=== PATIENT | male | born 1965 | race Caucasian/White ===

== ENCOUNTER 2025-01-05 11:27 | Outpatient (REF) | payer MEDICAID, SELFPAY ==
--- OUTSIDE RECORDS SUMMARY | 2025-01-05 13:56 | XMS_ITS | Continuity of Care Document ---
Author Name [facility] Organization 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 Unavailable Unavailable Problems Combined list of problems from Department of Defense and Veterans Affairs facilities. It does not include entries that were removed or entered in error. Problem Status Onset Date Problem Type Date of Resolution Comments Source Essential hypertension Active Condition February 06, 2017 Entered By: MIKEALA JURADO Comment: [facility] Raphael [facility] History of male erectile disorder Active Condition [facility] Hyperglycemia Active Condition [facility] Obesity Active Condition [facility] Osteoarthritis Active Condition February Entered By: MIKAELA JURADO Comment: Bilat wrists and knees [facility] Primary progressive multiple sclerosis Active Condition February 06 017 Entered By: MIKAELA JURADO Comment: Dr[facility] Aung Chow in [facility] privately [facility] Umbilical hernia Active Condition [facility] Medications Combined list of outpatient medications from Department of Defense and Veterans Affairs facilities.Medications provided include 1) outpatient medications from the last 15 months, and 2) patient-reported medications. Medication Details Route Status Patient Instructions Prescription Expires Prescription Number Last Dispense Date Ordering Provider Order Date Order Qty Source BACLOFEN 10MG TAB TAKE ONE TABLET BY MOUTH DAILY ORAL ACTIVE Elieser JURADO 2016 [facility] GABAPENTIN 300MG CAP TAKE 2 CAPSULES BY MOUTH THREE TIMES A DAY ORAL ACTIVE Elieser JURADO 2016 [facility] GLATIRAMER ACETATE 40MG/ML INJ,SYR,1ML INJECT 1 SYRINGE (40MG) SUBCUTAN EOUSLY THREE TIMES A WEEK SUBCUT ANEOUS ACTIVE Elieser JURADO 2016 [facility] HYDROCHLORO THIAZIDE 25MG TAB TAKE ONE TABLET BY MOUTH DAILY ORAL ACTIVE JURADOElieser RANDOLPH 2016 [facility] LISINOPRIL 20MG TAB TAKE ONE TABLET BY MOUTH DAILY ORAL ACTIVE JURADOElieser RANDOLPH 2016 [facility] MODAFINIL 200MG TAB TAKE ONE TABLET BY MOUTH DAILY ORAL ACTIVE JURADOElieser RANDOLPH 2016 [facility] Social History Combined list of available smoking, tobacco, and other social history from Department of Defense and Veterans Affairs facilities. Social History Type Response Date Comment [facility] e Tobacco smoking status SDIS QUIT TOBACCO USE > 7 YEARS AGO 02/06/2017 23 [facility]
--- OUTSIDE RECORDS SUMMARY | 2025-01-05 13:56 | XMS_ITS | Continuity of Care Document ---
Author Organization [facility] Address [address] [place] [address] Assessment No assessment recorded. Plan of Treatment Reminders Order Date Submit Date Provider Last Modified By Organization Details Last Modified Time Details Appointments FOLLOW UP 15 2024 10:45A M MARY BETH ZUNIGA Not available Not available Not available Lab hemoglobi n A1c, QN, blood 2024 025 [facility], [address] [place] [address], [id number], 01/05/2025 11:30:31 lipid panel, serum 2024 025 [facility], [address] [place] [address], [id number], 01/05/2025 11:30:31 CMP, serum or plasma 2024 025 [facility], [address] [place] [address], [id number], 01/05/2025 11:30:31 PSA, serum or plasma 2024 025 [facility], [address] [place] [address], [id number], 01/05/2025 11:30:31 Referral None recorded. Procedures None recorded. Surgeries None recorded. Imaging None recorded. Medication Orders tizanidin e 4 mg tablet 2024 025 [facility], [address] [place], [id number], 01/05/2025 11:23:40 Patient TargetsNo targets recorded. Patient InstructionsNo instructions recorded. Reason for Referral None Reported. Problems Name Problem SNOMED Code Status Onset Date Resolution Date Notes Provider Name and Address Organization Details Recorded Time Essential hypertensi on 27271404 Active 2017 Not Available [facility] 3 15:34:21 Multiple sclerosis 82831361 Active 2017 Not Available [facility] 3 15:34:21 Hypertrigl yceridemia 644403534 Active 2017 Not Available [facility] 3 15:34:20 Lumbago with sciatica 122705806 Active 2023 MARY BETH ZUNIGA [address] [place] [address], [phone], [facility] 4 14:02:17 Candidiasi s of skin 48844401 Active 2023 MARY BETH ZUNIGA [address] [place] [address], [phone], [facility] 4 14:23:21 Lumbago with sciatica 383776409 Active 2023 MARY BETH ZUNIGA [address] [place] [address], [phone], [facility] 4 14:23:57 Impaired fasting glycemia 721990479 Active 2024 MARY BETH ZUNIGA [address] [place] [address], [phone], [facility] 5 11:02:49 Notes:Some problems listed i n Document: #[id number] could not be added to this patient's chart. Please review this document and add these problems to the patient's chart manually as needed. Problem Notes None recorded. Procedures Surgical History Date Name Laterality Status Provider Name and Address Organization Details Recorded Time 10/25/19 18 colonoscopy completed Christina Haider NP, [address] [place] [address], [phone], [facility] 12/05/2018 15:03:15 Imaging Results None recorded. Procedure Notes None recorded. Medical Equipment None Reported. Allergies No known drug allergies Medications Name Sig Start Date Stop Date Status Note LastModified by Organization Details LastModified Time prednisone 10 mg tablet 50 mg x 2 days40 mg x 2 days30 mg x 2 days20 mg x 2 days10 mg x 2 days 01/05 completed Not Available Not Available Not Available gabapentin 600 mg tablet TAKE ONE TAB TID active Not Available Not Available No t Available doxycycline hyclate 100 mg capsule 07/18 completed Not Available Not Available Not Available tizanidine 4 mg tablet Take 1 tablet every 6 hours by oral route as needed for 30 days. 2024 active Not Available Not Available Not Avai lable lisinopril 20 mg tablet Take 1 tablet every day by oral route for 30 days. 07/21 completed Not Available Not Available Not Available sildenafil 100 mg tablet TAKE 1 TABLET DIRECTED NEEDED 04/27 completed Not Available Not Available Not Available meloxicam 7.5 mg tablet Take 1 tablet twice a day by oral route as needed for 30 days, for sciatic pain. active PRN Not Available Not Available No t Available prednisolon e acetate 1 % eye drops,suspe nsion 04/27 completed Not Available Not Available Not Available modafinil 200 mg tablet TAKE 1 TAB BY MOUTH EVERY DAY AND 1/2 TAB ON SATURDAY active Not Available Not Available No t Available baclofen 10 mg tablet TAKE ONE TABLET BY MOUTH TWICE A DAY NEEDED 01/05 completed Not Available Not Available Not Available gemfibrozil 600 mg tablet TAKE ONE TABLET BY MOUTH TWICE A DAY active Not Available Not Available No t Available erythromyci n 5 mg/gram (0.5 %) eye ointment APPLY 1 CM RIBBON INTO THE LOWER CONJUNCTI GONZÁLEZ SAC(S) IN THE AFFECTED EYE(S) BY OPHTHALMI C ROUTE 3 TIMES PER DAY 04/27 completed Not Available Not Available Not Available fluoxetine 20 mg tablet TAKE ONE TABLET BY MOUTH EVERY DAY 01/05 completed Not Available Not Available Not Available diclofenac sodium 75 mg tablet,malorie yed release TAKE ONE TABLET BY MOUTH TWICE A DAY WITH MEALS 04/27 completed Not Available Not Available Not Available hydrochloro thiazide 25 mg tablet Take 1 tablet every day by oral route for 30 days. 07/18 completed Not Available Not Available Not Available levofloxaci n 750 mg tablet TAKE ONE TABLET BY MOUTH EVERY DAY FOR 7 DAYS 04/27 completed Not Available Not Available Not Available methylpredn isolone 4 mg tablets in a dose pack use directed. 04/27 completed Not Available Not Available Not Available lisinopril 40 mg tablet TAKE ONE TABLET BY MOUTH EVERY DAY active Not Available Not Available No t Available fluoxetine 20 mg capsule TAKE ONE CAPSULE BY MOUTH EVERY DAY 04/27 completed Not Available Not Available Not Available [facility] 100,000 unit/gram topical powder APPLY TO THE AFFECTED AREA(S) BY TOPICAL ROUTE 2 TIMES PER DAY active Not Available Not Available No t Available dimethyl fumarate 240 mg capsule,del ayed release TAKE ONE CAPSULE BID active Not Available Not Available No t Available glatiramer 40 mg/mL subcutaneou s syringe 04/27 completed Not Available Not Available Not Available Vitals Date Recorded Body height Body mass index (BMI) Body weight Heart rate Oxygen saturation Oxygen saturation in Arterial blood by Pulse oximetry Systolic blood pressure Diastolic blood pressure Provider Name and Address Organization Details Last Updated DateTime 5 182.88 cm 38 kg/m2 299233. 86 g 80 /min 98 % 98 % 144 mm[Hg] 80 mm[Hg] Rosalba Cox [facility] 5 10:51:23 Social History Question Answer Notes LastModified by Organizat ion Details LastModified Time Tobacco Smoking Status Former Smoker Quit Donte veliz [facility] 04/27/2024 13:48:42 What Was The Date Of Your Most Recent Tobacco Screening? 04/27/2024 [email or web address] Information not available 04/27/2024 Sex: Unknown Functional Status None recorded. Mental Status None recorded. Family History Nothing Reported. Medical History No medical history recorded. Immunizations Vaccine Type Date Status Note Provider Nam e and Address Organization Details Recorded Time zoster recombinant 2 completed Not Available [facility] 10/15/2022 15:34:21 Past Encounters Encounter ID Performer Location Encounter Start Date Encounter Closed Date Diagnosis/Indication Diagnosis SNOMED-CT Code Diagnosis ICD10 Code Diagnosis Note [id number] MARY BETH ZUNIGA [facility] [address] [facility] [address] 01/05/2025 10:47:11 01/05/2025 13:30:14 Essential hypertension 85543710 I10 BP stable Hypertriglyceridemia 302 134441 E78.1 needs recheck Lumbago with sciatica 20 0019526 M54.41 stable Multiple sclerosis 94342 007 G35 stable, no sig changeshad to reschedule his neuro appt Impaired f asting glycemia 963909029 R73.01 Screening for malignant neoplasm of prostate 295918396 Z12.5 recheck PSA levels Health Concerns Section Related Observation LastModified by Organization Detai ls LastModified Time None Recorded Concern Status LastModified by Organization Details LastModified Time None Recorded Payers Encounter Date Sequence Insurance Name Policy Number Policy Wilson Covered Member ID Wilson Member ID Guarantor Name 01/05/2025 1 [place] [facility] Juan Duy [id number] Juan Gordillo Notes Date Note Type Note Provider Name a nd Address Organization Details Recorded Time 01/05/2025 text/html medication check f/u the patient had to cancel his neurology appointment due to a sick granddaughter, 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
--- OUTSIDE RECORDS SUMMARY | 2025-01-05 13:56 | XMS_ITS | Data Portability ---
Author Organization [facility], [facility] Address [address] [place] [address] Assessment No assessment recorded. Plan of Treatment Reminders Order Date Submit Date Provider Last Modified By Organization Details Last Modified Time Details Appointments None record ed. Lab None record ed. Referral None record ed. Procedures None record ed. Surgeries None record ed. Imaging None record ed. Medication Orders None record ed. Patient TargetsNo targets recorded. Patient InstructionsNo instructions recorded. Reason for Referral None Reported. Results Created Date Observation Date Name Description Value Unit Range Abnormal Flag Note LastModifiedBy Organization Detail LastModifiedTime Result Notes None recorded. Procedures Surgical History Date Name Laterality Status Provider Name and Address Organization Details Recorded Time 8 Ty - Colonoscopy completed Henrry Crawford MD [address] [place] [address], [phone], [facility] 10/25/2017 08:09:48 4 Ty - Colonoscopy completed Henrry Crawford MD [address] [place] [address], [phone], [facility] 08/13/2014 08:38:36 Imaging Results None recorded. Procedure Notes None recorded. Medical Equipment None Reported. Vitals None Recorded Social History None recorded. Functional Status None recorded. Mental Status None recorded. Family History Nothing Reported. Medical History No medical history recorded. Past Encounters Encounter ID Performer Location Encounter Start Date Encounter Closed Date Diagnosis/Indication Diagnosis SNOMED-CT Code Diagnosis ICD10 Code Diagnosis Note [id number] [address] [address] 08/13/2014 06:56:36 08/13/2014 14:27:05 [id number] Henrry Crawford MD [address] [address] 10/25/2017 06:44:36 10/25/2017 15:02:20 Health Concerns Section Related Observation LastModified by Organization Detai ls LastModified Time None Recorded Concern Status LastModified by Organization Details LastModified Time None Recorded Advance Directives Directive None Recorded Payers Encounter Date Sequence Insurance Name Policy Number Policy Wilson Covered Member ID Wilson Member ID Guarantor Name 08/13/2014 2 [employer] Juan Gordillo [id number] Juan Gordillo 08/13/2014 1 [facility] [employer] [facility] [id number] Juan Gordillo [id number] Juan Gordillo 10/25/2017 2 [employer] [place]) Juan Gordillo [id number] Juan Gordillo 10/25/2017 1 [facility] [employer] ([facility] [id number] Juan Gordillo [id number] Juan Gordillo
--- OUTSIDE RECORDS SUMMARY | 2025-01-05 13:56 | XMS_ITS | Data Portability ---
Author Organization [facility] Home Service Address [address] [place] [address] Assessment Encounter Date Assessment Date Assessment LastModified by Organization Details LastModified Time 03/07/2020 03/07/2020 TELEMED VIDEO CALL: 11 minutes PATIENT VERBALLY CONSENTED [email or web address] Not available 03/07/2020 10:43:42 04/03/2021 04/03/2021 Patient agreed and verbally consents to this audio and video Telehealth appt via a secure platform [email or web address] Not available 04/03/2021 16:16:18 08/08/2021 08/08/2021 Patient agreed and verbally consents to this audio and video Telehealth appt via a secure platform [email or web address] Not available 08/08/2021 15:08:24 Plan of Treatment Reminders Order Date Submit Date Provider Last Modified By Organization Details Last Modified Time Details Appointments FOLLOW UP 15 2024 10:45A M MARY BETH ZUNIGA Not available Not available Not available Lab hemoglobi n A1c, QN, blood 2024 025 [facility], [address] [place] [address], [id number], 01/05/2025 11:30:31 lipid panel, serum 2024 025 [facility], [address] [place] [address], [id number], 01/05/2025 11:30:31 CMP, serum or plasma 2024 025 [facility], [address] [place] [address], [id number], 01/05/2025 11:30:31 PSA, serum or plasma 2024 [facility], [address] [place] [address], [id number], 01/05/2025 11:30:31 lipid panel, blood - 8-12 hr fast 2023 024 [facility], [address] [place] [address], [address], 05/05/2024 08:15:29 CBC w/ auto diff 2023 [facility], [address] [place] [address], [id number], 04/27/2024 14:12:47 PSA, serum or plasma 2023 024 [facility], [address] [place] [address], [address], 04/27/2024 14:12:48 CMP, serum or plasma 2023 [facility], [address] [place] [address], [address], 05/05/2024 08:15:29 hemoglobi n A1c, QN, blood 2023 [facility], [address] [place] [address], [address], 04/27/2024 14:12:48 Referral None recorded. Procedures None recorded. Surgeries None recorded. Imaging None recorded. Medication Orders tizanidin e 4 mg tablet 2024 [facility], [address] [place], [address], 01/05/2025 11:23:40 gemfibroz il 600 mg tablet 2023 024 [facility], [address] [place], [address], 04/27/2024 14:04:21 meloxicam 7.5 mg tablet 2023 024 [facility], [address] [place], [address], 01/05/2025 11:06:18 erythromy tulio 5 mg/gram (0.5 %) eye ointment [address] [facility], [address] [place], [address], 04/27/2024 13:47:43 levofloxa tulio 750 mg tablet [address] [facility], [address] [place], [address], 04/27/2024 13:48:03 Medrol (Karl) 4 mg tablets in a dose pack [address] [facility], [address] [place], [address], 04/27/2024 13:48:12 diclofena c sodium 75 mg tablet,de layed release 2020 [facility], [address] [place], [address], 04/27/2024 14:01:48 baclofen 10 mg tablet 2019 020 [facility], [address] [place], [address], 01/05/2025 11:06:57 Patient TargetsNo targets recorded. Patient InstructionsNo instructions recorded. Reason for Referral None Reported. Results Created Date Observation Date Name Description Value Unit Range Abnormal Flag Note LastModifiedBy Organization Detail LastModifiedTime Result Notes None recorded. Problems Name Problem SNOMED Code Status Onset Date Resolution Date Notes Provider Name and Address Organization Details Recorded Time Essential hypertensi on 87889741 Active 2017 Not Available [facility] 3 15:34:21 Multiple sclerosis 62683665 Active 2017 Not Available [facility] 3 15:34:21 Hypertrigl yceridemia 502443475 Active 2017 Not Available [facility] 3 15:34:20 Lumbago with sciatica 425761418 Active 2023 MARY BETH ZUNIGA [address] [place] [address], [phone], [facility] 4 14:02:17 Candidiasi s of skin 91976116 Active 2023 MARY BETH ZUNIGA [address] [place] [address], [phone], [facility] 4 14:23:21 Lumbago with sciatica 130777738 Active 2023 MARY BETH ZUNIGA [address] [place] [address], [address], [facility] 4 14:23:57 Impaired fasting glycemia 598767768 Active 2024 MARY BETH ZUNIGA [address] [place] [address], [address], [facility] 5 11:02:49 Notes:Some problems listed i n Document: #[id number] could not be added to this patient's chart. Please review this document and add these problems to the patient's chart manually as needed. Problem Notes None recorded. Procedures Surgical History Date Name Laterality Status Provider Name and Address Organization Details Recorded Time 10/25/19 18 colonoscopy completed Christina Haider NP, S [address] [place] [address], [phone], [facility] 12/05/2018 15:03:15 Imaging Results None [...] BY MOUTH EVERY DAY FOR 7 DAYS 07/22 /2024 completed Not Available Not Available Not Available [...] completed Not Available Not Available Not Available [facility] 100,000 unit/gram topical powder APPLY TO THE [...] and Address Organization Details Last Updated DateTime 4 182.88 cm 38 kg/m2 958143. 86 g 80 /min 98 % 98 % 128 mm[Hg] 84 mm[Hg] Donte Mosley MA [facility] 4 13:49:57 Date Recorded Body height Body mass index (BMI) Body weight Heart rate Oxygen saturation Oxygen saturation in Arterial blood by Pulse oximetry Systolic blood pressure Diastolic blood pressure Provider Name and Address Organization Details Last Updated DateTime 5 182.88 cm 38 kg/m2 318689. 86 g 80 /min 98 % 98 % 144 mm[Hg] 80 mm[Hg] Rosalba Cox [facility] 5 10:51:23 Social History Question Answer Notes LastModified by Organizat ion Details LastModified Time Tobacco Smoking Status Former Smoker Quit Donte veliz [facility] 04/27/2024 13:48:42 What Was The [...] SNOMED-CT Code Diagnosis ICD10 Code Diagnosis Note [id number] Christina Haider NP, S [facility] [address] [facility],[place] [address] 07/18/2018 09:48:27 07/18/2018 14:41:52 Impaired glucose tolerance 3144663 R73.03 Multiple sclerosis 007 G35 on meds, up to date with Dr. Galeano Essential hypertension 00079496 I10 D/C HCTZ, increase lisinopril [id number] Christina Haider NP, S [facility] [address] [facility],[place] [address] 08/01/2018 09:29:35 08/01/2018 11:49:16 Hypertriglyceridemia 349456236 E78.1 new lopid- will recheck in October with f/u appt Impaired g lucose tolerance 5624027 R73.03 A1C 5.0- long discussion pre-diabet ic Multiple sclerosis 07403 007 G35 up to date with Dr. Galeano-w ill refill baclofen, to taper off gabapentin Essential hypertension 06260635 I10 improved [id number] Christina Haider NP, S [facility] [address] [facility], [place] [address] 12/05/2018 14:56:19 12/05/2018 15:37:15 Hypertriglyceridemia 306567190 E78.1 improved on lopid triglyceri navarro from 397 to 75 Impaired g lucose tolerance 1939070 R73.03 continued improved diet Essential hypertension 95707448 I10 stable Multiple sclerosis 12032 007 G35 up to date with Dr. Galeano- Right flank pain 4084080 09 R10.9 Anxiety 10462958 F41.9 [id number] MARY BETH ZUNIGA [facility] [address] [facility], [place] [address] 03/07/2020 08:10:18 03/07/2020 11:26:10 Multiple sclerosis 10833578 G35 doing well in terms of his disease, has his good and bad days staying healthy and strong staying positive about his diagnosis and is overall doing very well 29438 MARY BETH ZUNIGA [facility] [address] [facility] [address],[place] [address] 04/03/2021 08:08:52 04/03/2021 16:26:43 Multiple sclerosis 31230168 G35 doing well in terms of his disease, has his good and bad days staying healthy and strong staying positive about his diagnosis and is overall doing very well neurology appt last week was good, the patient wasn't changed, his disease has been stable Osteoarthr itis of knee 566243442 M17.0 uses a cane for aid while walking Sciatica 29196072 M54.32 will trial diclofenac already on high dose of gabapentin 76101 MARY BETH ZUNIGA [facility] [address] [facility] [address],[place] [address] 08/08/2021 09:48:28 08/08/2021 15:46:14 Bacterial conjunctivitis 379335467 H10.011 will treat for bacterial conjuctivi tis Acute bronchitis 8759363 2 J20.9 probable bronchitis vs pnalong history of URI and bronchitis [id number] MARY BETH ZUNIGA [facility] [address] [facility] [address], [place] [address] 04/27/2024 13:42:38 04/27/2024 14:32:43 Depression screening 848057924 Z13.31 negative Hypertriglyceridemia 302 806245 E78.1 will set up with refill of his medication Essential hypertension 58534757 I10 stable with recheck Impaired g lucose tolerance 0220956 R73.03 stable Multiple sclerosis 49323 007 G35 doing well in terms of his disease, has his good and bad days staying healthy and strong staying positive about his diagnosis and is overall doing very well follows closely with his neurologis t, medication corrected in chart Lumbago with sciatica 20 5849857 M54.41 will set up with meloxicam BID to see if it helps with the OA and MS Screening for malignant neoplasm of prostate 455675803 Z12.5 due for screening Screening colonoscopy 44 8945305 Z12.11 every ten years, up to date, had one 5 years ago At [facility], [facility]–1983 risk for falls 942389865 Z91.81 uses cane 603446 MARY BETH ZUNIGA [facility] [address] [facility] [address],[place] [address] 01/05/2025 10:47:11 01/05/2025 13:30:14 Essential hypertension 97861015 I10 BP stable Hypertriglyceridemia 302 063230 E78.1 needs recheck Lumbago with sciatica 20 9062202 M54.41 stable Multiple sclerosis 01627 007 G35 stable, no sig changeshad to reschedule his neuro appt Impaired f asting glycemia 677029448 R73.01 Screening for malignant neoplasm of prostate 358028614 Z12.5 recheck PSA levels Health Concerns Section Related Observation LastModified by Organization Detai ls LastModified Time None Recorded Concern Status LastModified by Organization Details LastModified Time None Recorded Advance Directives Directive None Recorded Payers Encounter Date Sequence Insurance Name Policy Number Policy Wilson Covered Member ID Wilson Member ID Guarantor Name 03/07/2020 1 [facility] [id number] Juan Gordillo [id number] Juan Gordillo 04/03/2021 1 [facility] [id number] Rubi Gordillo [id number] Juan Gordillo 08/08/2021 1 [facility] [id number] Rubi Gordillo [id number] Juan Gordillo 04/27/2024 1 [place] [facility] Juan Gordillo [id number] Juan Gordillo 01/05/2025 1 [place] [facility] Juan Gordillo [id number] Juan Gordillo Notes Date Note Type Note Provider Name a ri Address Organization Details Recorded Time 03/07/2020 text/html TELEMED VIDEO CALL: 11 minutes PATIENT VERBALLY CONSENTED medication f/u baclofen > 10 mg BID PRN, takes it it for MS, takes it for when he is having muscle spasms caused by the MS, helps him with the pain and issues with that no side effects, good on the dosage gemfibrozil > takes it for cholesterol, may not have wanted to have started him on a statin due to possibility of muscle side effects in terms of his MS he states that it is day to day with his symptoms > states that somes days he is really good, some days he has bad days can keep him up at night in terms of the muscle pain and spasms, fatigue MARY BETH ZUNIGA [address] [place], [address], [facility] 03/07/2020 10:44:29 04/03/2021 text/html paperwork MS: the patient reports it is similar to last appt, peaks and plateaus recent neurologist appt, the patient states everything is stable osteoarthritis: the is using a cane for stability otherwise doing well sciatica: the patient will be started on diclofenac for pain and call if no improvement MARY BETH ZUNIGA [address] [place], [address], [facility] 04/03/2021 16:20:58 08/08/2021 text/html c/o pink eye and chest congestion telemed the patient reports chest congestion and tightness with productive coughthe patient reports he is producing bermudez mucus the patient reports redness of his right eye with eye crust with purulent dischargethe patient has tried OTC decongestants and cough medication without effect will give abx with medrol dose karl and anbx ointment for the eye no sick contacts MARY BETH ZUNIGA [address] [place], [address], [facility] 08/08/2021 15:09:51 04/27/2024 text/html f/u medication depression screening: The patient denies little pleasure in activities they find enjoyable, feeling depressed, difficulties sleeping, feeling tired or having little energy, change in appetite, feeling guilty, overwhelmed or unmotivated. The patient denies suicidal ideation, thoughts of hurting themselves or others. Their mood is appropriate, they show good judgement and clear understanding of the conversation. They are orientated to time, place and person. They are not expressing any concerning thoughts or actions that would need further investigation and treatment for mental health. HLD: stable, needs refill of medication currently the adoptive parental figure for his granddaughter who is 11 y/o (his daughter , leaving him in custody) the patient reports he may be having carpal tunnel surgery again (will talk to surgeon) has really bad sciatic pain, mainly R sidealso on-top of the MS patient currently has and the OA needs lab work for the year MARY BETH ZUNIGA [address] [place], [address], [facility] 04/27/2024 14:17:02 01/05/2025 text/html medication check f/u the patient had to cancel his neurology appointment due to a sick granddaughter, 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
[2025-01-05 14:07] LABS: Alanine Aminotransferase 25 U/L (0-40); Albumin Level 4.6 g/dL (3.5-5.0); Alkaline Phosphatase 72 U/L (39-117); Anion Gap 12 (12-20); Aspartate Amino Transferase 19 U/L (5-37); Bilirubin Total 1.1 mg/dL (0.0-1.0); Blood Urea Nitrogen 11 mg/dL (9-16); Calcium 10.2 mg/dL (8.4-10.2); Carbon Dioxide 25 mmol/L (22-29); Chloride 103 mmol/L (96-108); Cholesterol 171 mg/dL (<200); Estimated Glomerular Filt Rate > 60; Glucose Random 244 mg/dL (60-115); HDL Cholesterol 45 mg/dL (>40); LDL Cholesterol Calculated 95 mg/dL (<100); Potassium 3.8 mmol/L (3.3-5.1); Sodium 136 mmol/L (135-145); Total Protein 7.8 g/dL (6.5-8.0); Triglycerides 157 mg/dL (<150)
[2025-01-05 14:17] LABS: Prostate Specific Antigen 2.97 ng/mL (<0.05-4.0)
[2025-01-05 17:10] LABS: Estimated Average Glucose 209 mg/dL; Hemoglobin A1C 291.5869 umol/L; Hemoglobin A1c % 8.9 % (<6.0); Total Hemoglobin (HGBA1C) 3963.6655 umol/L
== END 2025-01-05 11:28 | disposition home or self-care (01) ==
LOC: HO.MANLDS 11:27
PROVIDERS: Visit Provider Physician Assistant
DX: E78.1 Pure hyperglyceridemia (principal); R73.01 Impaired fasting glucose
CPT/HCPCS: 36415; 80053; 80061; 83036; 84153

== ENCOUNTER 2025-09-10 13:46 | Outpatient (REF) | payer MEDICAID, SELFPAY ==
--- OUTSIDE RECORDS SUMMARY | 2025-09-10 18:02 | XMS_ITS | Clinical Summary ---
Author Organization [facility] Address [address] [facility] [address] [place] [address] Phone Care Team Providers Care Pharmacy Helper Name Role Phone Ricky Raphael Primary Care Provider [phone] Allergies No known active allergies Medications Medication-Free Text Gabapentin Active MODAFINIL ORAL Activ e LISINOPRIL ORAL Acti ve GLATIRAMER ACETATE (COPAXONE SUBQ) Acti ve Social History Tobacco Use Types Packs/Day Years Used Date Smoking Tobacco: Former Smokeless Tobacco: Never Alcohol Use Standard Drinks/Week Comments Yes 0 (1 standard drink = 0.6 oz pur e alcohol) Education Answer Date Recorded Are you interested in more education? Not on kash e 02/17/2023 Are you concerned about learning? Not on file 02/17/2023 No 02/17/2023 No 02/17/2023 Digital Access Answer Date Recorded No 03/03/2023 No 03/03/2023 Reliable internet access at home? Not on file 03/03/2023 Device with a working camera? Not on file Intimate Partner Violence Answer Date R ecorded Are you denied basic needs s uch as food, clothing, or medical care? No 10/07/2024 In the past 12 months have y ou been in a relationship with a person who hurts, threatens, or tries to control you? No 10/07/2024 Are you denied basic needs s uch as food, clothing, or medical care? No 10/07/2024 In the past 12 months have y ou been in a relationship with a person who hurts, threatens, or tries to control you? No 10/07/2024 Sex and Gender Information Value Date Recorded Sex Assigned at Male 11/20/2018 3:39 PM EST Legal Sex Male 6:01 PM EST Gender Identity Male 11/20/2018 3:39 PM EST Sexual Orientation Straight 11/20/2018 3: 39 PM EST Last Filed Vital Signs Vital Sign Reading Time Taken Comments Blood Pressure 135/91 10/07/2024 4:45 PM EST Pulse 88 10/07/2024 4:45 PM EST Temperature 36.6 C (97.8 F) 10/07/2024 4:45 PM EST Respiratory Rate 16 10/07/2024 4:45 PM EST Oxygen Saturation 100% 10/07/2024 4:45 PM EST Inhaled Oxygen Concentration - - Weight 124.7 kg (275 lb) 10/07/2024 1:24 PM EST Height 182.9 cm (6') 10/07/2024 1:24 PM EST Body Mass Index 37.3 10/07/2024 1:24 PM EST Plan of Treatment Health Maintenance Due Date Last Done Comments Adult Td,Tdap Booster 1963 LIPID PANEL 1963 DEPRESSION SCREENING 1975 SMOKING Hx and SMOKELESS TOBACCO SCREENING 1976 HIV ONE-TIME SCREENING (18-6 5 YEARS) 1981 SCREENING FOR DIABETES 1998 COLOGUARD 2008 COLONOSCOPY 2008 COLORECTAL CANCER SCREENING 2008 FIT TEST 2008 FOBT 2008 SIGMOIDOSCOPY 2008 VIRTUAL COLONOSCOPY 2008 PNEUMOCOCCAL VACCINES (50+ years) (1 of 1 - PCV) 2013 CREATININE LEVEL 11/20/2019 11/20/2018, 07/15/2018 POTASSIUM LEVEL 11/20/2019 11/20/2018 INFLUENZA VACCINE (#1) 2025 COVID-19 VACCINE ( - 2024-2 6 season) 2025 RSV VACCINE (1 - 1-dose 75+ series) 2038 ZOSTER VACCINES Completed 06/15/2022, 12/22/2021 HEPATITIS C SCREENING Completed 08/06/2023 , 08/06/2023 HEPATITIS A VACCINES Aged Out No long er eligible based on patient's age to complete this topic HIB VACCINES Aged Out No longer eligi ble based on patient's age to complete this topic MENINGOCOCCAL VACCINES (ACWY) Aged Out No longer eligible based on patient's age to complete this topic MENINGOCOCCAL VACCINES (B) Aged Out N o longer eligible based on patient's age to complete this topic Medical Devices Not on file Procedures Procedure Name Priority Date/Time Associated Diagnosis Comments HEPATITIS C ANTIBODY, QUALITATIVE Routine 08/06/2023 8:47 AM EDT Numbness Memory loss BASIC METABOLIC PANEL (BMP) STAT 11/20/2018 3:54 PM EST from Last 3 Months or Most Recently Relevant to Health Maintenance Results * Hepatitis C antibody, qualitative (08/06/2023 8:47 AM EDT) HCV NON-REACTIV E NON-REACTI VE [facility] Blood 08/06/2023 8:47 AM EDT 08/06/2023 8:50 AM EDT us Aung Coe MD LAB BLOOD BKR ORDERABLES Fin al Result [address] [address] * (ABNORMAL) Basic metabolic panel (11/20/2018 3:54 PM EST) SODIUM 125(L) 133 - 146 mmol/L [facility] CHLORIDE 92(L) 96 - 108 mmol/L [facility] POTASSIUM 4.4 3.3 - 5.1 mmol/L [facility] CO2 24 21 - 35 mmol/L [facility] BUN 15 6 - 19 mg/dL [facility] CREATININE 0.90 0.5 - 1.5 mg/dL [facility] GLUCOSE 136(H) 70 - 99 mg/dL [facility] CALCIUM 9.0 8.4 - 10.3 mg/dL [facility] EGFR 96 >59 mL/min/1.7 3m2 [facility] Comment:If patient is black, multiply result by 1.159. Estimated glomerular filtration rate calculated using the CKD-EPI equation. ANION GAP 13 10 - 20 mmol/L [facility] Blood 11/20/2018 3:54 PM EST 11/20/2018 4:02 PM EST Arleth [facility] LAB BLOOD BKR ORDERABLES Final Result [facility] [address] [place] [address] from Last 3 Months or Most Recently Relevant to Health Maintenance Insurance [employer] MEDICARE [facility] MEDICARE A [facility] MEDIC[facility] A Care Teams Pharmacy Helper Relationship Specialty Start Date End Date Ricky Raphael DO [email or web address] PCP - General 10/10/17 Additional Source Comments The information contained in this document represents components of the legal health record. It is not the complete legal health record.[facility]
--- OUTSIDE RECORDS SUMMARY | 2025-09-10 18:02 | XMS_ITS | Encounter Summary ---
Author Organization [facility] Address [address] [facility] [address] [place] [address] Phone Care Team Providers Care Instructional Design Consultant Name Role Phone Ricky Raphael DO Primary Care Provider [phone] Encounter Details Date Type Department Care Team (Latest Contact Info) Description 07/15/2018 Transcribe Orders [address] [address] Aung Coe MD [address] [place] [address], [address] [place] [address] [email or web address] Pre-procedure lab exam (Primary Dx) Social History Tobacco Use Types Packs/Day Years Used Date Smoking Tobacco: Never Assessed Sex and Gender Information Value Date Recorded Sex Assigned at Male 11/20/2018 3:39 PM EST Legal Sex Male 6:01 PM EST Gender Identity Male 11/20/2018 3:39 PM EST Sexual Orientation Straight 11/20/2018 3: 39 PM EST documented as of this encounter Plan of Treatment Not on file documented as of this encounter Results * Creatinine/eGFR (07/15/2018 9:35 AM EDT) CREATININE 0.90 0.5 - 1.5 mg/dL [facility] EGFR 96 >59 mL/min/1.7 3m2 [facility] Comment:If patient is black, multiply result by 1.159. Estimated glomerular filtration rate calculated using the CKD-EPI equation. Blood 07/15/2018 9:35 AM EDT 07/15/2018 9:40 AM EDT us Aung Coe MD LAB BLOOD BKR ORDERABLES Fin al Result Performing Organization Address City/[facility]/ZIP Co de Phone Number [address] [address] * BUN (07/15/2018 9:35 AM EDT) BUN 18 6 - 19 mg/dL [facility] Blood 07/15/2018 9:35 AM EDT 07/15/2018 9:40 AM EDT us Aung Coe MD LAB BLOOD BKR ORDERABLES Fin al Result Performing Organization Address [facility] de Phone Number [address] [address] documented in this encounter Visit Diagnoses Diagnosis Pre-procedure lab exam- Primary Pre-procedural laboratory examination documented in this encounter Additional Health Concerns Infection Onset Date Last Indicated Resolved Time MRSA Comment:Import to add expiration date of 12/23/2021 per Infection Control as part of historical infection status reconciliation 09/01/2009 09/01/2009 12/24/19 22 1:28 AM EDT documented as of this encounter Care Teams Instructional Design Consultant Relationship Specialty Start Date End Date Ricky Raphael DO [email or web address] PCP - General 10/10/17 documented as of this encounter Additional Source Comments The information contained in this document represents components of the legal health record. It is not the complete legal health record.[facility]
--- OUTSIDE RECORDS SUMMARY | 2025-09-10 18:02 | XMS_ITS | Data Portability ---
Author Organization [facility], Telehealth Patient Home Address [address] [place] [address] Assessment Encounter Date Assessment Date Assessment LastModified by Organization Details LastModified Time 04/03/2021 04/03/2021 Patient agreed and verbally consents to this audio and video Telehealth appt via a secure platform [email or web address] Not available 04/03/2021 16:16:18 08/08/2021 08/08/2021 Patient agreed and verbally consents to this audio and video Telehealth appt via a secure platform [email or web address] Not available 08/08/2021 15:08:24 08/31/2025 08/31/2025 [id number] [place] [id number] (FITNESS DIRECTOR) MDM MODERATE MUST MEET 2 OUT OF 3 ELEMENTS: PROBLEMS, DATA OR RISK ELEMENT 1: PROBLEMS ADDRESSED 1 OR MORE CHRONIC ILLNESS WITH EXACERBATION OR 2 OR MORE STABLE CHRONIC ILLNESSES OR 1 UNDIAGNOSED NEW PROBLEM OR 1 ACUTE ILLNESS W/SYMPTOMS OR 1 ACUTE COMPLICATED INJURY ELEMENT 2: DATA MUST MEET 1 OF 3 CATEGORIES CATEGORY 1: REVIEW OF PRIOR EXTERNAL NOTES, REVIEW OF RESULTS, ORDERING OF EACH TEST, ASSESSMENT REQUIRING INDEPENDENT HISTORIAN OR CATEGORY 2: INDEPENDENT INTERPRETATION OF TESTS BY ANOTHER PHYSICIAN OR SPECIALIST OR CATEGORY 3: DISCUSSION OF MGT OR TEST INTERPRETATION W/EXTERNAL PHYSICIAN OR SPECIALIST ELEMENT 3: RISK RISK OF COMPLICATIONS AND/OR MORBIDITY OR MORTALITY OF PATIENT MANAGEMENT PROVIDER MUST THOROUGHLY DOCUMENT EACH ELEMENT THAT IS COVERED [email or web address] Not available 08/31/2025 17:12:36 Plan of Treatment Reminders Order Date Submit Date Provider Last Modified By Organization Details Last Modified Time Details Appointments FOLLOW UP 15 2025 09:30A MARY BETH FARRELL Not available Not available Not available Lab hemoglobi n A1c, QN, blood [id number] [facility], [address] [place] [address], [address], 08/31/2025 17:20:37 CMP, serum or plasma 2024 [facility], [address] [place] [address], [address], 08/31/2025 17:20:37 microalbu min/creat inine, mass ratio, urine 2024 formerly [facility], [address] [facility], [address], [place], [address], 09/01/2025 08:23:15 glucose, fasting, QN, serum or plasma 2024 [facility], [address] [place] [address], [address], 08/31/2025 17:25:19 HbA1c (hemoglob in A1c), blood 2024 [facility], [address] [place] [address], [address], 08/31/2025 17:25:19 CBC w/ auto diff 2024 [facility], [address] [place] [address], [address], 08/31/2025 17:20:37 hemoglobi n A1c, QN, blood 2024 025 [facility], [address] [place] [address], [address], 01/05/2025 11:30:31 lipid panel, serum 2024 025 [facility], [address] [place] [address], [address], 01/06/2025 12:58:11 CMP, serum or plasma 2024 025 [facility], [address] [place] [address], [address], 01/06/2025 12:58:10 PSA, serum or plasma 2024 025 [facility], [address] [place] [address], [address], 01/05/2025 11:30:31 lipid panel, blood - 8-12 hr fast 2023 024 [facility], [address] [place] [address], [address], 05/05/2024 08:15:29 CBC w/ auto diff 2023 024 [facility], [address] [place] [address], [address], 04/27/2024 14:12:47 PSA, serum or plasma 2023 024 [facility], [address] [place] [address], [address], 04/27/2024 14:12:48 CMP, serum or plasma 2023 024 [facility], [address] [place] [address], [address], 05/05/2024 08:15:29 hemoglobi n A1c, QN, blood 2023 024 [facility], [address] [place] [address], [address], 04/27/2024 14:12:48 Referral None recorded. Procedures None recorded. Surgeries None recorded. Imaging None recorded. Medication Orders sildenafi l 50 mg tablet 2024 025 [facility], [address] [place], [address], 08/31/2025 17:21:18 tizanidin e 4 mg tablet 2024 025 [facility], [address] [place], [address], 01/05/2025 11:23:40 gemfibroz il 600 mg tablet 2023 024 [facility], [address] [place] [address], [id number], 04/27/2024 14:04:21 meloxicam 7.5 mg tablet 2023 [facility], [address] [place] [address], [address], 01/05/2025 11:06:18 erythromy tulio 5 mg/gram (0.5 %) eye ointment [address] [facility], [address] [place] [address], [address], 04/27/2024 13:47:43 levofloxa tulio 750 mg tablet [address] [facility], [address] [place], [address], 04/27/2024 13:48:03 Medrol (Karl) 4 mg tablets in a dose pack [address] [facility], [address] [place] [address], [address], 04/27/2024 13:48:12 diclofena c sodium 75 mg tablet,de layed release 2020 [facility], [address] [place] [address], [address], 04/27/2024 14:01:48 Patient TargetsNo targets recorded. Patient InstructionsNo instructions recorded. Reason for Referral None Reported. Results Created Date Observation Date Name Description Value Unit Range Abnormal Flag Note LastModifiedBy Organization Detail LastModifiedTime Result Notes None recorded. Problems Name Problem SNOMED Code Status Onset Date Resolution Date Notes Provider Name and Address Organization Details Recorded Time Essential hypertensi on 94832942 Active 2017 Not Available [facility] 3 15:34:21 Multiple sclerosis 25041517 Active 2017 MARY BETH ZUNIGA [address] [place] [address], [address], [facility] 5 17:13:34 Hypertrigl yceridemia 455336538 Active 2017 Not Available [facility] 3 15:34:20 Lumbago with sciatica 078568794 Active 2023 MARY BETH ZUNIGA [address] [place] [address], [address], [facility] 4 14:02:17 Candidiasi s of skin 40382434 Active 2023 MARY BETH ZUNIGA [address] [place] [address], [address], [facility] 4 14:23:21 Lumbago with sciatica 160254696 Active 2023 MARY BETH ZUNIGA [address] [place] [address], [address], [facility] 4 14:23:57 Impaired fasting glycemia 687091729 Active 2024 MARY BETH ZUNIGA [address] [place] [address], [address], [facility] 5 11:02:49 Type 2 diabetes mellitus 14848612 Active 2024 MARY BETH ZUNIGA [address] [place] [address], [address], [facility] 5 16:31:05 Secondary erectile dysfunctio n 949829607 Active 2024 MARY BETH ZUNIGA [address] [place] [address], [address], [facility] 17:20:13 Notes:Some problems listed i n Document: #[id number] could not be added to this patient's chart. Please review this document and add these problems to the patient's chart manually as needed. Problem Notes None recorded. Procedures Surgical History Date Name Laterality Status Provider Name and Address Organization Details Recorded Time 10/25/19 18 colonoscopy completed Christina Haider NP, [address] [place], [address], [facility] 12/05/2018 15:03:15 Imaging Results None [...] Not Available Not Available Not Available sildenafil 50 mg tablet Take 1 tablet by oral route as needed for 30 days. 2024 active Not Available Not Available Not Avai lable tizanidine 4 mg tablet Take 1 tablet every 6 hours by oral route as needed for 30 days. 2024 active Not Available Not Available Not Avai lable lisinopril 20 mg tablet Take 1 tablet every day by oral route for 30 days. 07/21 completed Not Available Not Available Not Available glipizide ER 5 mg tablet, extended release 24 hr TAKE ONE TABLET BY MOUTH EVERY DAY 2024 active Not Available Not Available Not Avai lable sildenafil 100 mg tablet TAKE 1 TABLET [...] TABLET BY MOUTH TWICE A DAY NEEDED 2024 active Not Available Not Available Not Avai lable gemfibrozil 600 mg tablet TAKE ONE TABLET BY MOUTH TWICE A DAY 2024 active Not Available Not Available Not Avai lable erythromyci n 5 mg/gram (0.5 %) eye [...] completed Not Available Not Available Not Available [facility] 100,000 unit/gram topical powder APPLY TO THE AFFECTED AREA(S) BY TOPICAL ROUTE 2 TIMES PER DAY 08/31 completed Not Available Not Available Not Available FreeStyle Lite Strips Use as directed. 2024 active Not Available Not Available Not Avai lable dimethyl fumarate 240 mg capsule,del ayed release TAKE ONE CAPSULE BID active Not Available Not Available No t Available glatiramer 40 mg/mL subcutaneou s syringe 04/27 completed Not Available Not Available Not Available Vitals Date Recorded Body height Body mass index (BMI) Body weight Heart rate Oxygen saturation Systolic And Diastolic Provider Name and Address Organization Details Last Updated DateTime 04/01/202 5 182.88 cm 38 kg/m2 315084. 86 g 80 /min 98 % 144/80 mm[Hg] Rosalba Cox [facility] 5 10:51:23 Date Recorded Body height Body mass index (BMI) Body weight Heart rate Oxygen saturation Systolic And Diastolic Provider Name and Address Organization Details Last Updated DateTime 4 182.88 cm 38 kg/m2 610525. 86 g 80 /min 98 % 128/84 mm[Hg] Donte Mosley [facility] 4 13:49:57 Date Recorded Body height Body mass index (BMI) Body weight Oxygen saturation Heart rate Systolic And Diastolic Provider Name and Address Organization Details Last Updated DateTime 5 182.88 cm 38.1 kg/m2 863555. 46 g 97 % 97 /min 140/86 mm[Hg] JERRY CALLAWAY [facility] 5 16:49:36 Social History Question Answer Notes LastModified by Organizat ion Details LastModified Time Tobacco Smoking Status Former Smoker Quit Donte veliz [facility] Internal [facility] 04/27/2024 13:48:42 What Was The Date Of Your Most Recent Tobacco Screening? 08/31/2025 [email or web address] Information not available 08/31/2025 Sex: Unknown Functional Status None recorded. Mental [...] Diagnosis SNOMED-CT Code Diagnosis ICD10 Code Diagnosis IMO Codes Diagnosis Note [id number] DO [facility] [address] [facility] [address] [address] 07/18/2018 09:48:27 07/18/2018 14:41:52 Impaired glucose tolerance 0460744 R73.03 Multiple sclerosis 99997 007 G35 on meds, up to date with Dr. Galeano Essential hypertension 05999658 I10 D/C HCTZ, increase lisinopril 73066 DO [facility] [address] [facility] [address] [facility] [place] [address] 08/01/2018 09:29:35 08/01/2018 11:49:16 Hypertriglyceridemia 702034931 E78.1 new lopid- will recheck in October with f/u appt Impaired g lucose tolerance 1466665 R73.03 A1C 5.0- long discussion pre-diabet ic Multiple sclerosis 90762 007 G35 up to date with Dr. Galeano-w ill refill baclofen, to taper off gabapentin Essential hypertension 91671144 I10 improved 86948 Ricky Raphael [facility] [address] [facility] [address] 12/05/2018 14:56:19 12/05/2018 15:37:15 Hypertriglyceridemia 250802487 E78.1 improved on lopid triglyceri navraro from 397 to 75 Impaired g lucose tolerance 8550610 R73.03 continued improved diet Essential hypertension 21534556 I10 stable Multiple sclerosis 18613 007 G35 up to date with Dr. Galeano- Right flank pain 3350045 09 R10.9 Anxiety 60919815 F41.9 05991 Ricky Raphael [facility] [address] [facility] [address] [place] [address] [facility] [place] [address] 03/07/2020 08:10:18 03/07/2020 11:26:10 Multiple sclerosis 34149737 G35 doing well in terms of his disease, has his good and bad days staying healthy and strong staying positive about his diagnosis and is overall doing very well [address]3382 Ricky Raphael [facility] [address] [facility] [address] [place] [facility] [place] [address] 04/03/2021 08:08:52 04/03/2021 16:26:43 Multiple sclerosis 77464773 G35 doing well in terms of his disease, has his good and bad days staying healthy and strong staying positive about his diagnosis and is overall doing very well neurology appt last week was good, the patient wasn't changed, his disease has been stable Osteoarthr itis of knee 622424592 M17.0 uses a cane for aid while walking Sciatica 28911380 M54.32 will trial diclofenac already on high dose of gabapentin 90022 Ricky Raphael [facility] [address] [facility] [address] [facility] [place] [address] 08/08/2021 09:48:28 08/08/2021 15:46:14 Bacterial conjunctivitis 505137789 H10.011 will treat for bacterial conjuctivi tis Acute bronchitis 9178805 2 J20.9 probable bronchitis vs pnalong history of URI and bronchitis 199079 Ricky Raphael [facility] [address] [facility] [address] [address] [facility] [place] [address] 04/27/2024 13:42:38 04/27/2024 14:32:43 Depression screening 948376130 Z13.31 negative Hypertriglyceridemia 302 606495 E78.1 will set up with refill of his medication Essential hypertension 03078921 I10 stable with recheck Impaired g lucose tolerance 6192162 R73.03 stable Multiple sclerosis 22159 007 G35 doing well in terms of his disease, has his good and bad days staying healthy and strong staying positive about his diagnosis and is overall doing very well follows closely with his neurologis t, medication corrected in chart Lumbago with sciatica 20 3360388 M54.41 will set up with meloxicam BID to see if it helps with the OA and MS Screening for malignant neoplasm of prostate 241379164 Z12.5 due for screening Screening colonoscopy 44 5698729 Z12.11 every ten years, up to date, had one 5 years ago At [facility] risk for falls 639635046 Z91.81 uses cane [id number] Ricky Raphael [facility] [address] [facility] [address] [address] [facility] [address] 01/05/2025 10:47:11 01/05/2025 13:30:14 Essential hypertension 04247689 I10 BP stable Hypertriglyceridemia 302 336089 E78.1 needs recheck Lumbago with sciatica 20 5663152 M54.41 stable Multiple sclerosis 34905 007 G35 stable, no sig changeshad to reschedule his neuro appt Impaired f asting glycemia 148391191 R73.01 Screening for malignant neoplasm of prostate 224298865 Z12.5 recheck PSA levels 751120 DO [facility] [address] [facility] [address] 08/31/2025 16:07:33 09/01/2025 08:16:53 Depression screening 476116418 Z13.31 negative Type 2 robert betes mellitus 16614501 E11.9 has not lost wgt Multiple sclerosis 50570 007 G35.D [address]59[address] relates he is somewhat stable Essential hypertension 46081345 I10 BP stable Secondary erectile dysfunction 229509408 N52.9 184713 Health Concerns Section Related Observation LastModified by Organization Detai ls LastModified Time None Recorded Concern Status LastModified by Organization Details LastModified Time None Recorded Advance Directives Directive None Recorded Payers Insurance Date Sequence Insurance Name Policy Number Policy Wilson Covered Member ID Wilson Member ID Guarantor Name 08/31/2025 2 [facility] (MEDICAID HMO) Juan Gordillo [id number] Juan Gordillo 08/31/2025 1 [place]: [facility] Juan Duy [id number] Juan Gordillo 04/27/2024 1 [employer] [id number] Rubi Nelsonifford [id number] Juan Gordillo 08/31/2025 1 [employer] [id number] Juan Pillai Duy [id number] Juan Gordillo Notes Date Note Type Note Provider Name a nd Address Organization Details Recorded Time 04/03/2021 text/html ROS as noted in the HPI paperwork MS: the patient reports it is similar to last appt, peaks and plateaus recent neurologist appt, the patient states everything is stable osteoarthritis: the is using a cane for stability otherwise doing well sciatica: the patient will be started on diclofenac for pain and call if no improvement MARY BETH ZUNIGA [address] [facility], [place], [address], [facility] 04/03/2021 16:20:58 08/08/2021 text/html ROS as noted in the HPI c/o pink eye and chest congestion telemed [...] no sick contacts MARY BETH ZUNIGA [address] [place], [address], [facility] 08/08/2021 15:09:51 04/27/2024 text/html ROS as noted in the HPI f/u medication depression screening: The patient denies [...] for the year MARY BETH ZUNIGA [address] [place], [address], [facility] 04/27/2024 14:17:02 01/05/2025 text/html ROS as noted in the HPI medication check f/u the patient had to cancel his neurology appointment due to a sick granddaughter, 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
--- OUTSIDE RECORDS SUMMARY | 2025-09-10 18:02 | XMS_ITS | Continuity of Care Document ---
Author Organization [facility] Address [address] [facility] [place] [place] [address] Assessment Encounter Date Assessment Date Assessment LastModified by Organization Details LastModified Time 08/31/2025 08/31/2025 [address] [place] [address] (ARTICULATION OFFICER) MDM MODERATE MUST MEET 2 OUT OF [...] hemoglobi n A1c, QN, blood 2024 025 [facility], [address] [place] [address], [place], [address], 08/31/2025 17:20:37 CMP, serum or plasma 2024 025 [facility], [address] [place] [address], [address], 08/31/2025 17:20:37 microalbu min/creat inine, mass ratio, urine 2024 [facility], [address] [facility], [address], [place], [address], 09/01/2025 08:23:15 glucose, fasting, QN, serum or plasma 2024 [facility], [address] [place] [address], [address], 08/31/2025 17:25:19 HbA1c (hemoglob in A1c), blood 2024 [facility], [address] [place] [address], [address], 08/31/2025 17:25:19 CBC w/ auto diff 2024 [facility], [address] [place] [address], [address], 08/31/2025 17:20:37 Referral None recorded. Procedures None recorded. Surgeries None recorded. Imaging None recorded. Medication Orders sildenafi l 50 mg tablet 2024 [facility], [address] [facility], [place], [address], 08/31/2025 17:21:18 Patient TargetsNo targets recorded. Patient InstructionsNo instructions recorded. Reason for Referral None Reported. Results Created Date Observation Date Name Description Value Unit Range Abnormal Flag Note LastModifiedBy Organization Detail LastModifiedTime Result Notes None recorded. Problems Name Problem SNOMED Code Status Onset Date Resolution Date Notes Provider Name and Address Organization Details Recorded Time Essential hypertensi on 70928192 Active 2017 Not Available [facility] 3 15:34:21 Multiple sclerosis 43896757 Active 2017 MARY BETH ZUNIGA [address] [facility], [place], [address], [facility] 5 17:13:34 Hypertrigl yceridemia 122141930 Active 2017 Not Available [facility] 3 15:34:20 Lumbago with sciatica 234316011 Active 2023 MARY BETH ZUNIGA [address] [place] [address], [address], [facility] 4 14:02:17 Candidiasi s of skin 96409218 Active 2023 MARY BETH ZUNIGA [address] [place] [address], [address], [facility] 4 14:23:21 Lumbago with sciatica 436396318 Active 2023 MARY BETH ZUNIGA [address] [place] [address], [address], [facility] 4 14:23:57 Impaired fasting glycemia 957849338 Active 2024 MARY BETH ZUNIGA [address] [place] [address], [address], [facility] 5 11:02:49 Type 2 diabetes mellitus 37400601 Active 2024 MARY BETH ZUNIGA [address] [place] [address], [address], [facility] 5 16:31:05 Secondary erectile dysfunctio n 384241432 Active 2024 MARY BETH ZUNIGA [address] [place] [address], [address], [facility] 5 17:20:13 Notes:Some problems listed i n Document: #[id number] could not be added to this patient's chart. Please review this document and add these problems to the patient's chart manually as needed. Problem Notes None recorded. Procedures Surgical History Date Name Laterality Status Provider Name and Address Organization Details Recorded Time 10/25/19 18 colonoscopy completed Christina Haider NP, [address] [place] [address], [address], [facility] 12/05/2018 15:03:15 Imaging Results None [...] completed Not Available Not Available Not Available [facility] 100,000 unit/gram topical powder APPLY [...] and Address Organization Details Last Updated DateTime 182.88 cm 38.1 kg/m2 593927. 46 g 97 % 97 /min 140/86 mm[Hg] JERRY CALLAWAY [facility] 16:49:36 Social History Question Answer Notes LastModified by Organizat ion Details LastModified Time Tobacco Smoking Status Former Smoker Quit Donte veliz [place] [facility] 04/27/2024 13:48:42 What Was [...] ICD10 Code Diagnosis IMO Codes Diagnosis Note [id number] Ricky Raphael [facility] [address] [facility],[place] [address] 08/31/2025 16:07:33 09/01/2025 08:16:53 Depression screening 738947865 Z13.31 negative Type 2 robert betes mellitus 87226247 E11.9 has not lost wgt Multiple sclerosis 07561 007 G35.D [address] relates he is somewhat stable Essential hypertension 15232182 I10 BP stable Secondary erectile dysfunction 848464477 N52.9 634869 Health Concerns Section Related Observation LastModified by Organization Detai ls LastModified Time None Recorded Concern Status LastModified by Organization Details LastModified Time None Recorded Payers Encounter Date Sequence Insurance Name Policy Number Policy Wilson Covered Member ID Wilson Member ID Guarantor Name 08/31/2025 1 [place]ICAID-[place]: [facility] Juan Gordillo [id number] Juan Gordillo Notes Date Note Type Note Provider Name a nd Address Organization Details Recorded Time 08/31/2025 text/html ROS as noted in the HPI here for rechk and doing ok overall states is doing his best MARY BETH ZUNIGA [address] [place], [address], [facility] 08/31/2025 17:23:45
[2025-09-10 18:15] LABS: MANUAL DIFF FLAG NO
[2025-09-10 18:41] LABS: Hematocrit 44.3 % (42.0-52.0); Hemoglobin 15.0 g/dl (14.0-18.0); Imm Gran Abs Auto 0.01 X10*3/uL (0.00-0.03); Imm Gran Pct Auto 0.2 % (0.0-0.4); Lymphocytes Absolute Auto 0.4 X10*3/uL (1.2-4.9); Mean Corpuscular HGB Conc 33.9 g/dl (31.0-36.0); Mean Corpuscular Hemoglobin 29.9 pg (27.0-33.0); Mean Corpuscular Volume 88.2 fL (80.0-98.0); NRBC Abs Auto 0.000 X10*3/uL (0.0-0.012); NRBC Pct Auto 0.0 /100WBC (0.0-0.2); Platelet Count 241 X10*3/uL (160-400); Red Blood Count 5.02 X10*6/uL (4.60-5.80); White Blood Count 6.0 X10*3/uL (4.8-10.8)
[2025-09-10 19:20] LABS: Alanine Aminotransferase 26 U/L (0-40); Albumin Level 4.7 g/dL (3.5-5.0); Alkaline Phosphatase 66 U/L (39-117); Anion Gap 13 (12-20); Aspartate Amino Transferase 24 U/L (5-37); Blood Urea Nitrogen 19 mg/dL (9-16); Calcium 9.6 mg/dL (8.4-10.2); Carbon Dioxide 26 mmol/L (22-29); Chloride 104 mmol/L (96-108); Estimated Glomerular Filt Rate > 60; Potassium 4.3 mmol/L (3.3-5.1); Sodium 139 mmol/L (135-145); Total Protein 7.5 g/dL (6.5-8.0)
== END 2025-09-10 13:47 | disposition home or self-care (01) ==
LOC: HO.MANLDS 13:46
PROVIDERS: Visit Provider Physician Assistant
DX: E11.9 Type 2 diabetes mellitus without complications (principal); I10 Essential (primary) hypertension; N52.9 Male erectile dysfunction, unspecified
CPT/HCPCS: 36415; 80053; 83036; 85025

== ENCOUNTER 2025-09-14 14:53 | Outpatient (REF) | payer MEDICAID, SELFPAY ==
[2025-09-14 18:43] LABS: Microalbum/Creatinine Ratio Ur 81.4 ug/mg cr (<30)
--- OUTSIDE RECORDS SUMMARY | 2025-09-14 21:07 | XMS_ITS | Clinical Summary ---
Author Organization [facility] Address [address] [facility] [address] [place] [address] Phone Care Team Providers Care Pizza Chef Name Role Phone Ricky Raphael Primary Care Provider [phone] Allergies No known active allergies Medications Medication-Free [...] AM EDT) HCV NON-REACTIV E NON-REACTI VE [facility] Blood 08/06/2023 8:47 AM EDT 08/06/2023 8:50 AM EDT us Aung Coe MD LAB BLOOD BKR ORDERABLES Fin al Result [address] [address] * (ABNORMAL) Basic metabolic panel (11/20/2018 3:54 PM EST) SODIUM 125(L) 133 - 146 mmol/L [facility] CHLORIDE 92(L) 96 - 108 mmol/L [facility] POTASSIUM 4.4 3.3 - 5.1 mmol/L [facility] CO2 24 21 - 35 mmol/L [facility] BUN 15 6 - 19 mg/dL [facility] CREATININE 0.90 0.5 - 1.5 mg/dL [facility] GLUCOSE 136(H) 70 - 99 mg/dL [facility] CALCIUM 9.0 8.4 - 10.3 mg/dL [facility] EGFR 96 >59 mL/min/1.7 3m2 [facility] Comment:If patient is black, multiply result by 1.159. Estimated glomerular filtration rate calculated using the CKD-EPI equation. ANION GAP 13 10 - 20 mmol/L [facility] Blood 11/20/2018 3:54 PM EST 11/20/2018 4:02 PM EST [facility] LAB BLOOD BKR ORDERABLES Final Result [facility] [address] [place] [address] from Last 3 Months or Most Recently Relevant to Health Maintenance Insurance [employer] MEDICARE A [facility] MED[facility] A [facility] MEDICARE A [facility] MEDICARE A [facility] MEDICARE A Care Teams Pizza Chef Relationship Specialty Start Date End Date Ricky Raphael DO [email or web address] PCP - General 10/10/17 Additional Source Comments The information contained in this document represents components of the legal health record. It is not the complete legal health record.[facility]
--- OUTSIDE RECORDS SUMMARY | 2025-09-14 21:07 | XMS_ITS | Continuity of Care Document ---
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) MDM MODERATE MUST MEET 2 OUT OF [...] hemoglobi n A1c, QN, blood 2024 025 [facility], [address] [place] [address], [place], [address], 08/31/2025 17:20:37 CMP, serum or plasma 2024 025 [facility], [address] [place] [address], [address], 08/31/2025 17:20:37 microalbu min/creat inine, mass ratio, urine 2024 [facility], [address] [facility], [address], [place], [address], 09/01/2025 08:23:15 glucose, fasting, QN, serum or plasma 2024 [facility], [address] [place] [address], [address], 08/31/2025 17:25:19 HbA1c (hemoglob in A1c), blood 2024 [facility], [address] [place] [address], [address], 09/13/2025 11:39:06 CBC w/ auto diff 2024 [facility], [address] [place] [address], [address], 08/31/2025 17:20:37 Referral None recorded. Procedures None recorded. Surgeries None recorded. Imaging None recorded. Medication Orders sildenafi l 50 mg tablet 2024 [facility] [address], [address] [place], [address], 08/31/2025 17:21:18 Patient TargetsNo targets recorded. Patient InstructionsNo instructions recorded. Reason for Referral None Reported. Results Created Date Observation Date Name Description Value Unit Range Abnormal Flag Note LastModifiedBy Organization Detail LastModifiedTime Result Notes None recorded. Problems Name Problem SNOMED Code Status Onset Date Resolution Date Notes Provider Name and Address Organization Details Recorded Time Essential hypertensi on 36936832 Active 2017 Not Available [facility] 3 15:34:21 Multiple sclerosis 96727142 Active 2017 MARY BETH ZUNIGA [address] [facility], [place], [address], [facility] 5 17:13:34 Hypertrigl yceridemia 781963151 Active 2017 Not Available [facility] 3 15:34:20 Lumbago with sciatica 271536989 Active 2023 MARY BETH ZUNIGA [address] [place] [address], [address], [facility] 4 14:02:17 Candidiasi s of skin 46054251 Active 2023 MARY BETH ZUNIGA [address] [place] [address], [address], [facility] 4 14:23:21 Lumbago with sciatica 770792458 Active 2023 MARY BETH ZUNIGA [address] [place] [address], [address], [facility] 4 14:23:57 Impaired fasting glycemia 558260108 Active 2024 MARY BETH ZUNIGA [address] [place] [address], [address], [facility] 5 11:02:49 Type 2 diabetes mellitus 88887060 Active 2024 MARY BETH ZUNIGA [address] [place] [address], [address], [facility] 5 16:31:05 Secondary erectile dysfunctio n 740076893 Active 2024 MARY BETH ZUNIGA [address] [place] [address], [address], [facility] 5 17:20:13 Notes:Some problems listed i n Document: #[id number] could not be added to this patient's chart. Please review this document and add these problems to the patient's chart manually as needed. Problem Notes None recorded. Procedures Surgical History Date Name Laterality Status Provider Name and Address Organization Details Recorded Time 10/25/19 18 colonoscopy completed Christina Haider NP, [address] [place] [address], [address], [facility] 12/05/2018 15:03:15 Imaging Results None [...] completed Not Available Not Available Not Available [facility] 100,000 unit/gram topical powder APPLY TO THE [...] Last Updated DateTime 182.88 cm 38.1 kg/m2 957396. 46 g 97 % 97 /min 140/86 mm[Hg] JERRY Strong [facility] 16:49:36 Social History Question Answer Notes LastModified by Organizat ion Details LastModified Time Tobacco Smoking Status Former Smoker Quit [facility] 04/27/2024 13:48:42 What Was The [...] ICD10 Code Diagnosis IMO Codes Diagnosis Note [id number] Ricky Raphael DO [facility] [address] [facility],[place] [address] 08/31/2025 16:07:33 09/01/2025 08:16:53 Depression screening 972585626 Z13.31 negative Type 2 robert betes mellitus 39002930 E11.9 has not lost wgt Multiple sclerosis 58825 007 G35.D 43536 relates he is somewhat stable Essential hypertension 18535982 I10 BP stable Secondary erectile dysfunction 827298784 N52.9 [id number] Health Concerns Section Related Observation LastModified by Organization Detai ls LastModified Time None Recorded Concern Status LastModified by Organization Details LastModified Time None Recorded Payers Encounter Date Sequence Insurance Name Policy Number Policy Wilson Covered Member ID Wilson Member ID Guarantor Name 08/31/2025 1 [place]: [facility] Juan Gordillo [id number] Juan Gordillo Notes Date Note Type Note Provider Name a nd Address Organization Details Recorded Time 08/31/2025 text/html ROS as noted in the HPI here for rechk and doing ok overall states is doing his best MARY BETH ZUNIGA [address] [place], [address], [facility] 08/31/2025 17:23:45
--- OUTSIDE RECORDS SUMMARY | 2025-09-14 21:07 | XMS_ITS | Encounter Summary ---
Author Organization [facility] Address [address] [facility] [address] [place] [address] Phone Care Team Providers Care Compliance Program Manager Name Role Phone Ricky Raphael DO Primary Care Provider Encounter Details Date Type Department Care Team (Latest Contact Info) Description 07/15/2018 Transcribe Orders [address] [address] Aung Coe MD [address] [place] [address], [address] [place] [address] [email or web address] Pre-procedure lab exam (Primary Dx) Social [...] EDT) CREATININE 0.90 0.5 - 1.5 mg/dL [facility] EGFR 96 >59 mL/min/1.7 3m2 [facility] Comment:If patient is black, multiply result by 1.159. Estimated glomerular filtration rate calculated using the CKD-EPI equation. Blood 07/15/2018 9:35 AM EDT 07/15/2018 9:40 AM EDT us Aung Coe MD LAB BLOOD BKR ORDERABLES Fin al Result Performing Organization Address City/[facility]/ZIP Co de Phone Number [address] [address] * BUN (07/15/2018 9:35 AM EDT) BUN 18 6 - 19 mg/dL [facility] Blood 07/15/2018 9:35 AM EDT 07/15/2018 9:40 AM EDT us Aung Coe MD LAB BLOOD BKR ORDERABLES Fin al Result Performing Organization Address [facility] de Phone Number [address] [address] documented in this encounter Visit Diagnoses Diagnosis Pre-procedure lab exam- Primary Pre-procedural laboratory examination documented in this encounter Additional Health Concerns Infection Onset Date Last Indicated Resolved Time MRSA Comment:Import to add expiration date of 12/23/2021 per Infection Control as part of historical infection status reconciliation 09/01/2009 09/01/2009 12/24/19 22 1:28 AM EDT documented as of this encounter Care Teams Compliance Program Manager Relationship Specialty Start Date End Date Ricky Raphael DO [email or web address] PCP - General 10/10/17 documented as of this encounter Additional Source Comments The information contained in this document represents components of the legal health record. It is not the complete legal health record.[facility]
--- OUTSIDE RECORDS SUMMARY | 2025-09-14 21:07 | XMS_ITS | Data Portability ---
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) MDM MODERATE MUST MEET 2 OUT OF [...] hemoglobi n A1c, QN, blood 2024 025 [facility], [address] [place] [address], [id number], 08/31/2025 17:20:37 CMP, serum or plasma 2024 [facility], [address] [place] [address], [id number], 08/31/2025 17:20:37 microalbu min/creat inine, mass ratio, urine 2024 [facility], [address], [address], [place], [address], 09/01/2025 08:23:15 glucose, fasting, QN, serum or plasma 2024 [facility], [address] [place] [address], [id number], 08/31/2025 17:25:19 HbA1c (hemoglob in A1c), blood 2024 [facility], [address] [place] [address], [address], 09/13/2025 11:39:06 CBC w/ auto diff 2024 025 [facility], [address] [place] [address], [id number], 08/31/2025 17:20:37 hemoglobi n A1c, QN, blood 2024 025 [facility], [address] [place] [address], [id number], 01/05/2025 11:30:31 lipid panel, serum 2024 025 [facility], [address] [place] [address], [address], 01/06/2025 12:58:11 CMP, serum or plasma 2024 025 [facility], [address] [place] [address], [id number], 01/06/2025 12:58:10 PSA, serum or plasma 2024 025 [facility], [address] [place] [address], [address], 01/05/2025 11:30:31 lipid panel, blood - 8-12 hr fast 2023 024 [facility], [address] [place] [address], [address], 05/05/2024 08:15:29 CBC w/ auto diff 2023 024 [facility], [address] [place] [address], [address], 04/27/2024 14:12:47 PSA, serum or plasma 2023 024 [facility], [address] [place] [address], [id number], 04/27/2024 14:12:48 CMP, serum or plasma 2023 024 [facility], [address] [place] [address], [id number], 05/05/2024 08:15:29 hemoglobi n A1c, QN, blood 2023 024 [facility], [address] [place] [address], [address], 04/27/2024 14:12:48 Referral None recorded. Procedures None recorded. Surgeries None recorded. Imaging None recorded. Medication Orders sildenafi l 50 mg tablet 2024 025 [facility], [address] [place], [id number], 08/31/2025 17:21:18 tizanidin e 4 mg tablet 2024 025 [facility], [address] [place], [address], 01/05/2025 11:23:40 gemfibroz il 600 mg tablet 2023 024 [facility], [address] [place], [address], 04/27/2024 14:04:21 meloxicam 7.5 mg tablet 2023 024 [facility], [address] [place] [address], [address], 01/05/2025 11:06:18 erythromy tulio 5 mg/gram (0.5 %) eye ointment [address] [facility] [address] [facility], [address] [place], [address], 04/27/2024 13:47:43 levofloxa tulio 750 mg tablet [address] [facility], [address] [place], [address], 04/27/2024 13:48:03 Medrol (Karl) 4 mg tablets in a dose pack [address] [facility], [address] [place], [address], 04/27/2024 13:48:12 diclofena c sodium 75 mg tablet,de layed release 2020 [facility], [address] [place], [address], 04/27/2024 14:01:48 Patient TargetsNo targets recorded. Patient InstructionsNo instructions recorded. Reason for Referral None Reported. Results Created Date Observation Date Name Description Value Unit Range Abnormal Flag Note LastModifiedBy Organization Detail LastModifiedTime Result Notes None recorded. Problems Name Problem SNOMED Code Status Onset Date Resolution Date Notes Provider Name and Address Organization Details Recorded Time Essential hypertensi on 47907896 Active 2017 Not Available [facility] 3 15:34:21 Multiple sclerosis 68419740 Active 2017 MARY BETH ZUNIGA [address] [place] [address], [phone], [facility] 5 17:13:34 Hypertrigl yceridemia 431775104 Active 2017 Not Available [facility] 3 15:34:20 Lumbago with sciatica 369780451 Active 2023 MARY BETH ZUNIGA [address] [place] [address], [address], [facility] 4 14:02:17 Candidiasi s of skin 50750145 Active 2023 MARY BETH ZUNIGA [address] [place] [address], [address], [facility] 4 14:23:21 Lumbago with sciatica 875818099 Active 2023 MARY BETH ZUNIGA [address] [place] [address], [address], [facility] 4 14:23:57 Impaired fasting glycemia 615849919 Active 2024 MAYR BETH ZUNIGA [address] [place] [address], [address], [facility] 5 11:02:49 Type 2 diabetes mellitus 35973910 Active 2024 MARY BETH ZUNIGA [address] [place] [address], [address], [facility] 5 16:31:05 Secondary erectile dysfunctio n 263817721 Active 2024 MARY BETH ZUNIGA [address] [place] [address], [address], [facility] 17:20:13 Notes:Some problems listed i n Document: #[id number] could not be added to this patient's chart. Please review this document and add these problems to the patient's chart manually as needed. Problem Notes None recorded. Procedures Surgical History Date Name Laterality Status Provider Name and Address Organization Details Recorded Time 10/25/19 18 colonoscopy completed Christina Haider NP, [address] [place], [address], [facility] 12/05/2018 15:03:15 Imaging [...] completed Not Available Not Available Not Available [facility] 100,000 unit/gram topical powder APPLY TO THE [...] DateTime 04/01/202 5 182.88 cm 38 kg/m2 684847. 86 g 80 /min 98 % 144/80 mm[Hg] Rosalba Cox [facility] 5 10:51:23 Date Recorded Body height Body mass index (BMI) Body weight Heart rate Oxygen saturation Systolic And Diastolic Provider Name and Address Organization Details Last Updated DateTime 4 182.88 cm 38 kg/m2 714126. 86 g 80 /min 98 % 128/84 mm[Hg] Donte Mosley [facility] 4 13:49:57 Date Recorded Body height Body mass index (BMI) Body weight Oxygen saturation Heart rate Systolic And Diastolic Provider Name and Address Organization Details Last Updated DateTime 5 182.88 cm 38.1 kg/m2 884176. 46 g 97 % 97 /min 140/86 mm[Hg] JERRY CALLAWAY [facility] 5 16:49:36 Social History Question Answer Notes LastModified by Organizat ion Details LastModified Time Tobacco Smoking Status Former [facility] 04/27/2024 13:48:42 What Was The Date Of [...] Code Diagnosis IMO Codes Diagnosis Note [id number] Ricky Raphael DO [facility] [address] [facility] [address] [address] 07/18/2018 09:48:27 07/18/2018 14:41:52 Impaired glucose tolerance 4152056 R73.03 Multiple sclerosis 82001 007 G35 on meds, up to date with Dr. Galeano Essential hypertension 46851146 I10 D/C HCTZ, increase lisinopril [id number] Ricky Raphael DO [facility] [address] [facility],[place] [address] 08/01/2018 09:29:35 08/01/2018 11:49:16 Hypertriglyceridemia 799115513 E78.1 new lopid- will recheck in October with f/u appt Impaired g lucose tolerance 9215357 R73.03 A1C 5.0- long discussion pre-diabet ic Multiple sclerosis 46687 007 G35 up to date with Dr. Galeano-w ill refill baclofen, to taper off gabapentin Essential hypertension 94632435 I10 improved 01561 Ricky Raphael [facility] [address] [facility] [address] 12/05/2018 14:56:19 12/05/2018 15:37:15 Hypertriglyceridemia 335635470 E78.1 improved on lopid triglyceri navarro from 397 to 75 Impaired g lucose tolerance 5298286 R73.03 continued improved diet Essential hypertension 35735385 I10 stable Multiple sclerosis 08796 007 G35 up to date with Dr. Galeano- Right flank pain 3285806 09 R10.9 Anxiety 49340803 F41.9 56313 Ricky Raphael [facility] [address] [facility] [place] [address] 03/07/2020 08:10:18 03/07/2020 11:26:10 Multiple sclerosis 06131774 G35 doing well in terms of his disease, has his good and bad days staying healthy and strong staying positive about his diagnosis and is overall doing very well [address]2388 Ricky Raphael [facility] [address] [facility] [address] [address] 04/03/2021 08:08:52 04/03/2021 16:26:43 Multiple sclerosis 43724197 G35 doing well in terms of his disease, has his good and bad days staying healthy and strong staying positive about his diagnosis and is overall doing very well neurology appt last week was good, the patient wasn't changed, his disease has been stable Osteoarthr itis of knee 004447556 M17.0 uses a cane for aid while walking Sciatica 11962344 M54.32 will trial diclofenac already on high dose of gabapentin 53088 Ricky Raphael [facility] [address] [facility] [address] [facility] [place] [address] 08/08/2021 09:48:28 08/08/2021 15:46:14 Bacterial conjunctivitis 951506983 H10.011 will treat for bacterial conjuctivi tis Acute bronchitis 4599662 2 J20.9 probable bronchitis vs pnalong history of URI and bronchitis 187362 Ricky Raphael [facility] [address] [facility] [address],[place] [address] [facility] [place] [address] 04/27/2024 13:42:38 04/27/2024 14:32:43 Depression screening 973606898 Z13.31 negative Hypertriglyceridemia 302 672419 E78.1 will set up with refill of his medication Essential hypertension 39606877 I10 stable with recheck Impaired g lucose tolerance 6962107 R73.03 stable Multiple sclerosis 77082 007 G35 doing well in terms of his disease, has his good and bad days staying healthy and strong staying positive about his diagnosis and is overall doing very well follows closely with his neurologis t, medication corrected in chart Lumbago with sciatica 20 3687821 M54.41 will set up with meloxicam BID to see if it helps with the OA and MS Screening for malignant neoplasm of prostate 316425223 Z12.5 due for screening Screening colonoscopy 44 4492247 Z12.11 every ten years, up to date, had one 5 years ago At [facility] risk for falls 405078865 Z91.81 uses cane 107085 Ricky Raphael [facility] [address] [facility] [address],[place] [address] 01/05/2025 10:47:11 01/05/2025 13:30:14 Essential hypertension 43864691 I10 BP stable Hypertriglyceridemia 302 060362 E78.1 needs recheck Lumbago with sciatica 20 2703501 M54.41 stable Multiple sclerosis 19985 007 G35 stable, no sig changeshad to reschedule his neuro appt Impaired f asting glycemia 771708174 R73.01 Screening for malignant neoplasm of prostate 309115067 Z12.5 recheck PSA levels [id number] Ricky Raphael DO [facility] [address] [facility],[place] [address] 08/31/2025 16:07:33 09/01/2025 08:16:53 Depression screening 016174657 Z13.31 negative Type 2 robert betes mellitus 27263505 E11.9 has not lost wgt Multiple sclerosis 37332 007 G35.D [address] relates he is somewhat stable Essential hypertension 55032842 I10 BP stable Secondary erectile dysfunction 611233218 N52.9 213446 Health Concerns Section Related Observation LastModified by Organization Detai ls LastModified Time None Recorded Concern Status LastModified by Organization Details LastModified Time None Recorded Advance Directives Directive None Recorded Payers Insurance Date Sequence Insurance Name Policy Number Policy Wilson Covered Member ID Wilson Member ID Guarantor Name 08/31/2025 2 [facility] (MEDICAID HMO) Juan Gordillo [id number] Juan Gordillo 08/31/2025 1 [place] [facility] Juan Duy [id number] Juan Gordillo 04/27/2024 1 [employer] [id number] Rubi Nelsonifford [id number] Juan Gordillo 08/31/2025 1 [employer] [id number] Juan Pillai Duy [id number] Juan Gordillo Notes Date Note Type Note [...] if no improvement MARY BETH ZUNIGA [address] [facility], [place], [address], [facility] 04/03/2021 16:20:58 08/08/2021 text/html ROS [...] no sick contacts MARY BETH ZUNIGA [address] [place], [address], [facility] 08/08/2021 15:09:51 04/27/2024 text/html ROS [...] for the year MARY BETH ZUNIGA [address] [place], [address], [facility] 04/27/2024 14:17:02 01/05/2025 text/html ROS as noted in the HPI medication check f/u the patient had to cancel his neurology appointment due to a sick granddaughter, 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 08/31/2025 17:23:45
== END 2025-09-14 14:54 | disposition home or self-care (01) ==
LOC: HO.MANLDS 14:53
PROVIDERS: Visit Provider Physician Assistant
DX: E11.9 Type 2 diabetes mellitus without complications (principal)
CPT/HCPCS: 82043; 82570